=== PATIENT | female | born 1950 | race Caucasian/White ===

== ENCOUNTER → 2018-10-28 | Day surgery (SDC) | payer MEDICARE, MEDICAID ==
[~2018-10-28] VITALS: Ht 167.6 cm; Wt 93.8 kg
[~2018-10-28] MED LIST: ASPI-1393 PO; BACITRACIN 15GM TUBE TOP ONE; BACITRACIN 50,000 UNITS/VIAL ONE; BUPIVACAINE HCL/PF 0.5% (5MG/ML) 10ML ONE; CLOP75TA4 PO; FISH PO; GABA-531 PO; HEPARIN SODIUM 1,000 UNIT/1ML VIAL IV ONE; LIDOCAINE HCL 1% 20ML VIAL (Pyxis) INJ ONE; LOSA50TA41 PO; METF-416 PO; NIAC500T5 PO; PAPAVERINE HCL 30 MG/ML 2ML IV ONE; SODIUM CHLORIDE 0.9% 1,000 ML IV SCH; THROMBIN (BOVINE) 5000 UNITS/VIAL TOP ONE
[2018-10-28 11:16] LABS: BASOPHILS % 0.7 % (0.0-2.0); EOSINOPHILS % 5.1 % (0.0-5.0); HEMATOCRIT. 41.2 % (36.0-48.0); HEMOGLOBIN. 13.8 g/dL (12.0-16.0); LYMPHOCYTES % 21.2 % (20.0-50.0); MEAN CORPUSCULAR VOLUME 98.6 fL (81.0-99.0); MEAN PLATELET VOLUME 7.3 fl (7.4-10.4); MONOCYTES % 9.2 % (2.0-8.0); NEUTROPHILS % 63.8 % (40.0-76.0); PLATELET 224 x1000/uL (130-400); RED BLOOD CELL COUNT 4.18 mill/uL (4.2-5.4); RED CELL DISTRIBUTION WIDTH 13.7 % (11.6-14.6)
[2018-10-28 11:24] LABS: CHLORIDE 109 mEq/L (98-107)
[2018-10-28 11:25] LABS: PARTIAL THROMBOPLASTIN TIME 27.5 sec (23.4-31.0)
== END | disposition home or self-care (01) ==
LOC: OR 09:46
PROVIDERS: ATTEND Surgery Vascular Surgery
DX: I65.21 Occlusion and stenosis of right carotid artery (principal); E11.9 Type 2 diabetes mellitus without complications; I10 Essential (primary) hypertension; E78.5 Hyperlipidemia, unspecified; Z53.8 Procedure and treatment not carried out for other reasons; Z79.82 Long term (current) use of aspirin; Z79.899 Other long term (current) drug therapy; Z79.84 Long term (current) use of oral hypoglycemic drugs
CPT/HCPCS: 36415; 82962; J1644; J2440; J3490

== ENCOUNTER 2018-12-04 17:04 | Inpatient (IN) | payer MEDICARE, MEDICAID ==
[~2018-12-04] VITALS: Ht 167.6 cm; Wt 93.1 kg
[~2018-12-04 17:04] MED LIST changes: -BACITRACIN 15GM TUBE TOP ONE; -BACITRACIN 50,000 UNITS/VIAL ONE; -BUPIVACAINE HCL/PF 0.5% (5MG/ML) 10ML ONE; -HEPARIN SODIUM 1,000 UNIT/1ML VIAL IV ONE; -LIDOCAINE HCL 1% 20ML VIAL (Pyxis) INJ ONE; -PAPAVERINE HCL 30 MG/ML 2ML IV ONE; -SODIUM CHLORIDE 0.9% 1,000 ML IV SCH; -THROMBIN (BOVINE) 5000 UNITS/VIAL TOP ONE
[2018-12-04 17:49] LABS: BASOPHILS % 0.7 % (0.0-2.0); CHLORIDE 104 mEq/L (98-107); EOSINOPHILS % 4.6 % (0.0-5.0); HEMOGLOBIN. 14.3 g/dL (12.0-16.0); LYMPHOCYTES % 31.1 % (20.0-50.0); MEAN CORPUSCULAR HEMOGLOBIN 32.6 pg (28.0-32.0); MEAN CORPUSCULAR VOLUME 98.4 fL (81.0-99.0); MEAN PLATELET VOLUME 7.5 fl (7.4-10.4); MONOCYTES % 9.9 % (2.0-8.0); NEUTROPHILS % 53.7 % (40.0-76.0); PLATELET 225 x1000/uL (130-400); RED BLOOD CELL COUNT 4.37 mill/uL (4.2-5.4); RED CELL DISTRIBUTION WIDTH 13.2 % (11.6-14.6)
[2018-12-04] MEDS ORDERED: CLONIDINE 0.1MG TABLET PO PRN (20:30)
[2018-12-04] MEDS ORDERED: ONDANSETRON HCL 4MG/2ML INJ IV PRN (20:30)
[2018-12-04] MEDS ORDERED: IPRATROPIUM/ALBUTEROL 0.5-3(2.5)MG/3ML NEB NEB PRN (20:30)
[2018-12-04] MEDS ORDERED: LORAZEPAM 0.5MG TABLET PO PRN (20:30)
[2018-12-04] MEDS ORDERED: HYDROCODONE/ACETAMINOPHEN 5/325MG TABLET PO PRN (20:30)
[2018-12-04] MEDS ORDERED: DOCUSATE SODIUM 100MG CAPSULE PO PRN (20:30)
[2018-12-04] MEDS ORDERED: MAGNESIUM/ALUMINUM HYDROXIDE/SIMETHICONE 30ML UDC PO PRN (20:30)
[2018-12-04] MEDS: ACETAMINOPHEN 325MG TABLET PO PRN (21:16)
[2018-12-04 21:30] VITALS: BP 143/72
[2018-12-04] MEDS ORDERED: DEXTROSE 50% WATER 50ML SYRINGE IV PRN (21:45)
[2018-12-04 22:00] VITALS: BP 143/72
[2018-12-04] MEDS: ENOXAPARIN 30MG/0.3ML SYR SUBCUT SCH (22:22)
[2018-12-05 00:46] VITALS: BP 133/89
[2018-12-05] MEDS ORDERED: LORA-671 PO (00:50)
[2018-12-05] MEDS ORDERED: BASALGAR SQ (00:50)
[2018-12-05] MEDS ORDERED: EMPA10TA PO (00:50)
[2018-12-05] MEDS ORDERED: SITA100T11 PO (00:50)
[2018-12-05] MEDS ORDERED: METO-396 PO (00:50)
[2018-12-05 04:00] VITALS: BP 118/59
[2018-12-05] MEDS: BLOOD SUGAR DIAGNOSTIC STRIP TEST SCH ×4 (06:26→21:19)
[2018-12-05] MEDS: INSULIN LISPRO 100 UNITS/ML SUBCUT SCH ×4 (06:27→21:27)
[2018-12-05 07:14] LABS: BASOPHILS % 0.7 % (0.0-2.0); EOSINOPHILS % 6.3 % (0.0-5.0); HEMATOCRIT. 40.5 % (36.0-48.0); HEMOGLOBIN. 13.7 g/dL (12.0-16.0); LYMPHOCYTES % 33.7 % (20.0-50.0); MEAN CORPUSCULAR HEMOGLOBIN 33.3 pg (28.0-32.0); MEAN CORPUSCULAR VOLUME 98.4 fL (81.0-99.0); MEAN PLATELET VOLUME 7.7 fl (7.4-10.4); MONOCYTES % 10.4 % (2.0-8.0); NEUTROPHILS % 48.9 % (40.0-76.0); PLATELET 191 x1000/uL (130-400); RED BLOOD CELL COUNT 4.11 mill/uL (4.2-5.4); RED CELL DISTRIBUTION WIDTH 13.4 % (11.6-14.6)
[2018-12-05 08:10] LABS: LDL CHOLESTEROL 43 mg/dL (5-100)
[2018-12-05 08:12] LABS: CREATINE KINASE 48 IU/L (26-192); CREATINE KINASE MB FRACTION < 1.0 ng/mL (0.5-3.6); HDL CHOLESTEROL 31 mg/dL (40-59)
[2018-12-05 08:21] VITALS: BP 112/64
[2018-12-05] MEDS: ENOXAPARIN 30MG/0.3ML SYR SUBCUT SCH (08:38)
[2018-12-05] MEDS: ASPIRIN 81MG EC TABLET PO SCH (08:38)
[2018-12-05 12:11] VITALS: BP 118/55
[2018-12-05 13:08] LABS: PROTHROMBIN TIME 10.2 sec (9.6-11.0)
[2018-12-05] MEDS ORDERED: ENOXAPARIN 60MG/0.6ML SYR SUBCUT SCH (15:00)
[2018-12-05 16:00] VITALS: BP 137/62
[2018-12-05] MEDS: ENOXAPARIN 100MG/ML SYR SUBCUT SCH (17:09)
[2018-12-05] MEDS ORDERED: ATORVASTATIN CALCIUM 40MG TABLET PO SCH (21:00)
[2018-12-05] MEDS: INSULIN GLARGINE UD 100 UNITS/ML SYR SUBCUT SCH (21:27)
[2018-12-06] MEDS: ACETAMINOPHEN 325MG TABLET PO PRN ×2 (00:22→06:21)
[2018-12-06] MEDS: ENOXAPARIN 100MG/ML SYR SUBCUT SCH (04:56)
[2018-12-06] MEDS: INSULIN LISPRO 100 UNITS/ML SUBCUT SCH ×4 (06:20→21:16)
[2018-12-06] MEDS: BLOOD SUGAR DIAGNOSTIC STRIP TEST SCH ×4 (06:21→21:03)
[2018-12-06 08:00] VITALS: BP 127/49
[2018-12-06] MEDS ORDERED: NON FORMULARY PATIENT HOME MED XX SCH (08:15)
[2018-12-06] MEDS: LORATADINE 10MG TABLET PO SCH ×2 (08:53→17:52)
[2018-12-06] MEDS: ASPIRIN 81MG EC TABLET PO SCH (08:53)
[2018-12-06] MEDS: GABAPENTIN 300MG CAPSULE PO SCH (08:53)
[2018-12-06 11:40] VITALS: BP 132/66
[2018-12-06 16:00] VITALS: BP 139/51
[2018-12-06 20:00] VITALS: BP 131/64
[2018-12-06] MEDS: INSULIN GLARGINE UD 100 UNITS/ML SYR SUBCUT SCH (21:18)
[2018-12-07] VITALS (9 sets, daily range): BP systolic 119–146; BP diastolic 50–79
[2018-12-07] MEDS: BLOOD SUGAR DIAGNOSTIC STRIP TEST SCH ×4 (06:39→20:18)
[2018-12-07] MEDS: INSULIN LISPRO 100 UNITS/ML SUBCUT SCH ×4 (06:43→20:54)
[2018-12-07 07:10] LABS: BASOPHILS % 0.5 % (0.0-2.0); EOSINOPHILS % 6.2 % (0.0-5.0); HEMATOCRIT. 40.7 % (36.0-48.0); HEMOGLOBIN. 13.7 g/dL (12.0-16.0); LYMPHOCYTES % 30.7 % (20.0-50.0); MEAN CORPUSCULAR HEMOGLOBIN 32.8 pg (28.0-32.0); MEAN CORPUSCULAR VOLUME 97.6 fL (81.0-99.0); MEAN PLATELET VOLUME 7.6 fl (7.4-10.4); MONOCYTES % 11.3 % (2.0-8.0); NEUTROPHILS % 51.3 % (40.0-76.0); PLATELET 214 x1000/uL (130-400); RED BLOOD CELL COUNT 4.17 mill/uL (4.2-5.4); RED CELL DISTRIBUTION WIDTH 13.1 % (11.6-14.6)
[2018-12-07 07:21] LABS: CHLORIDE 108 mEq/L (98-107)
[2018-12-07] MEDS: ASPIRIN 81MG EC TABLET PO SCH (08:05)
[2018-12-07] MEDS: LORATADINE 10MG TABLET PO SCH ×2 (08:05→17:02)
[2018-12-07] MEDS: GABAPENTIN 300MG CAPSULE PO SCH (08:05)
[2018-12-07] MEDS ORDERED: HEPARIN SODIUM 1,000 UNIT/1ML VIAL IV ONE (09:37)
[2018-12-07] MEDS ORDERED: KCL 20MEQ/100ML PREMIX 100 ML IV NR ×2 (10:00→11:30)
[2018-12-07] MEDS ORDERED: SODIUM CHLORIDE 0.45% 1,000 ML IV SCH ×2 (12:30→16:00)
[2018-12-07] MEDS: CLOPIDOGREL 75MG TABLET PO SCH (12:40)
[2018-12-07] MEDS ORDERED: POTASSIUM CHLORIDE 20MEQ TABLET SR PO NR (12:45)
[2018-12-07] MEDS ORDERED: ASPIRIN/SOD BICARB/CITRIC ACID 324MG TAB EFF ONE (14:09)
[2018-12-07] MEDS ORDERED: IODIXANOL 320MG/ML 100 ML BOTTLE IV ONE (14:10)
[2018-12-07] MEDS ORDERED: LIDOCAINE HCL 1% 20ML VIAL (Pyxis) INJ ONE (14:10)
[2018-12-07] MEDS ORDERED: FENTANYL CITRATE/PF 50MCG/ML 2ML VIAL ONE (14:26)
[2018-12-07] MEDS ORDERED: MIDAZOLAM HCL 2 MG/2 ML VIAL ONE (14:26)
[2018-12-07] MEDS ORDERED: ATROPINE SULFATE 1MG/10ML SYR IV PRN (15:30)
[2018-12-07] MEDS ORDERED: ACETAMINOPHEN 325MG TABLET PO PRN (15:30)
[2018-12-07] MEDS ORDERED: ONDANSETRON HCL 4MG/2ML INJ IV PRN (15:30)
[2018-12-07] MEDS ORDERED: MORPHINE SULFATE 2 MG/ML CPJ (NOT FOR IM USE) IV PRN (15:30)
[2018-12-07] MEDS ORDERED: ENOXAPARIN 60MG/0.6ML SYR SUBCUT NR (21:00)
[2018-12-07] MEDS: INSULIN GLARGINE UD 100 UNITS/ML SYR SUBCUT SCH (22:06)
[2018-12-08] VITALS (16 sets, daily range): BP systolic 122–154; BP diastolic 37–84
[2018-12-08 05:30] LABS: BASOPHILS % 0.6 % (0.0-2.0); EOSINOPHILS % 6.5 % (0.0-5.0); HEMATOCRIT. 39.2 % (36.0-48.0); LYMPHOCYTES % 29.1 % (20.0-50.0); MEAN CORPUSCULAR HEMOGLOBIN 32.7 pg (28.0-32.0); MEAN CORPUSCULAR VOLUME 98.3 fL (81.0-99.0); MEAN PLATELET VOLUME 7.5 fl (7.4-10.4); MONOCYTES % 11.9 % (2.0-8.0); NEUTROPHILS % 51.9 % (40.0-76.0); PLATELET 202 x1000/uL (130-400); RED BLOOD CELL COUNT 3.99 mill/uL (4.2-5.4); RED CELL DISTRIBUTION WIDTH 13.5 % (11.6-14.6)
[2018-12-08 05:32] LABS: CHLORIDE 111 mEq/L (98-107)
[2018-12-08] MEDS: SODIUM CHLORIDE 0.45% 1,000 ML IV SCH ×2 (06:00→19:56)
[2018-12-08] MEDS: BLOOD SUGAR DIAGNOSTIC STRIP TEST SCH ×4 (06:00→20:05)
[2018-12-08] MEDS: INSULIN LISPRO 100 UNITS/ML SUBCUT SCH ×4 (07:19→20:12)
[2018-12-08] MEDS: CLOPIDOGREL 75MG TABLET PO SCH (08:44)
[2018-12-08] MEDS: GABAPENTIN 300MG CAPSULE PO SCH (08:44)
[2018-12-08] MEDS ORDERED: ASPIRIN 325MG TABLET PO SCH (09:00)
[2018-12-08] MEDS ORDERED: HEPARIN SODIUM 1,000 UNIT/1ML VIAL IV ONE ×2 (09:00→13:32)
[2018-12-08] MEDS: LORATADINE 10MG TABLET PO SCH ×2 (09:00→18:32)
[2018-12-08] MEDS ORDERED: LIDOCAINE HCL 1% 20ML VIAL (Pyxis) INJ ONE (13:32)
[2018-12-08] MEDS ORDERED: TICAGRELOR 90 MG TABLET PO ONE (14:12)
[2018-12-08] MEDS ORDERED: SODIUM CHLORIDE 0.45% 1,000 ML IV SCH (14:15)
[2018-12-08] MEDS ORDERED: CLOPIDOGREL 75MG TABLET ONE (14:15)
[2018-12-08] MEDS ORDERED: MORPHINE SULFATE 4 MG/ML CPJ (NOT FOR IM USE) IV PRN (14:15)
[2018-12-08] MEDS ORDERED: ATROPINE SULFATE 1MG/10ML SYR IV PRN (14:15)
[2018-12-08] MEDS ORDERED: ONDANSETRON HCL 4MG/2ML INJ IV PRN (14:15)
[2018-12-08] MEDS ORDERED: CLOPIDOGREL 75MG TABLET PO SCH (14:15)
[2018-12-08] MEDS ORDERED: ACETAMINOPHEN 325MG TABLET PO PRN (14:15)
[2018-12-08] MEDS ORDERED: MIDAZOLAM HCL 2 MG/2 ML VIAL ONE (14:21)
[2018-12-08] MEDS ORDERED: FENTANYL CITRATE/PF 50MCG/ML 2ML VIAL ONE (14:21)
[2018-12-08] MEDS ORDERED: CLOPIDOGREL 75MG TABLET PO NR (14:30)
[2018-12-08] MEDS: INSULIN GLARGINE UD 100 UNITS/ML SYR SUBCUT SCH (21:23)
[2018-12-09] VITALS (9 sets, daily range): BP systolic 115–160; BP diastolic 48–79
[2018-12-09] MEDS: BLOOD SUGAR DIAGNOSTIC STRIP TEST SCH ×2 (06:01→12:26)
[2018-12-09] MEDS: INSULIN LISPRO 100 UNITS/ML SUBCUT SCH ×2 (06:01→12:41)
[2018-12-09 07:35] LABS: BASOPHILS % 0.3 % (0.0-2.0); EOSINOPHILS % 2.7 % (0.0-5.0); HEMATOCRIT. 38.5 % (36.0-48.0); MEAN CORPUSCULAR HEMOGLOBIN 32.9 pg (28.0-32.0); MEAN CORPUSCULAR VOLUME 97.9 fL (81.0-99.0); MEAN PLATELET VOLUME 7.5 fl (7.4-10.4); MONOCYTES % 11.3 % (2.0-8.0); NEUTROPHILS % 65.7 % (40.0-76.0); PLATELET 204 x1000/uL (130-400); RED BLOOD CELL COUNT 3.94 mill/uL (4.2-5.4)
[2018-12-09 07:48] LABS: CHLORIDE 110 mEq/L (98-107)
[2018-12-09] MEDS ORDERED: ASPIRIN 325MG TABLET PO SCH (09:00)
[2018-12-09] MEDS ORDERED: CLOPIDOGREL 75MG TABLET PO SCH (09:00)
[2018-12-09] MEDS: GABAPENTIN 300MG CAPSULE PO SCH (09:40)
[2018-12-09] MEDS: LORATADINE 10MG TABLET PO SCH (09:40)
[2018-12-09] MEDS: SODIUM CHLORIDE 0.45% 1,000 ML IV SCH (09:40)
[2018-12-09] MEDS ORDERED: ASPI-1158 MT (12:30)
== END 2018-12-09 16:45 | disposition home health service (06) | DRG 247 ==
LOC: ER 17:04 → 8WST 19:28 → ENRESERV 19:53 → 3WST 12-07 15:35
PROVIDERS: ADMIT Internal Medicine; ATTEND Internal Medicine
PROC: 4A023N7 Measurement of Cardiac Sampling and Pressure, Left Heart, Percutaneous Approach (ICD-10-PCS; principal; 2018-12-07)
PROC: B2111ZZ Fluoroscopy of Multiple Coronary Arteries using Low Osmolar Contrast (ICD-10-PCS; 2018-12-07)
PROC: B2151ZZ Fluoroscopy of Left Heart using Low Osmolar Contrast (ICD-10-PCS; 2018-12-07)
PROC: 027034Z Dilation of Coronary Artery, One Artery with Drug-eluting Intraluminal Device, Percutaneous Approach (ICD-10-PCS; 2018-12-08)
PROC: B2101ZZ Fluoroscopy of Single Coronary Artery using Low Osmolar Contrast (ICD-10-PCS; 2018-12-08)
DX: I25.110 Atherosclerotic heart disease of native coronary artery with unstable angina pectoris (principal); I65.21 Occlusion and stenosis of right carotid artery; E11.42 Type 2 diabetes mellitus with diabetic polyneuropathy; E11.65 Type 2 diabetes mellitus with hyperglycemia; Z79.4 Long term (current) use of insulin; Z86.73 Personal history of transient ischemic attack (TIA), and cerebral infarction without residual deficits; I10 Essential (primary) hypertension; E78.5 Hyperlipidemia, unspecified; E87.6 Hypokalemia; E66.9 Obesity, unspecified; E78.00 Pure hypercholesterolemia, unspecified; E78.1 Pure hyperglyceridemia; F17.210 Nicotine dependence, cigarettes, uncomplicated; Z79.02 Long term (current) use of antithrombotics/antiplatelets; Z79.82 Long term (current) use of aspirin; Z68.33 Body mass index [BMI] 33.0-33.9, adult
CPT/HCPCS: 36415; 71045; 80048; 80061; 82550; 82553; 82962; 83036; 83735; 83880; 84484; 85347; 92928; 93005; 93454; 93458; 93970; 96372; 99285; C1760; C1769; C1874; C1887; C1893; J1644; J1650; J1815; J2250; J3010; J3480; J3490; Q9967; J8499

== ENCOUNTER 2019-01-06 09:16 | Inpatient (IN) | payer MEDICARE, MEDICAID ==
[~2019-01-06] VITALS: Ht 167.6 cm; Wt 93.4 kg
[2019-01-06] VITALS (37 sets, daily range): BP systolic 62–146; BP diastolic 25–81
[~2019-01-06 09:16] MED LIST changes: +ASPI-1158 MT; -ASPI-1393 PO; +BASALGAR SQ; +EMPA10TA PO; +LORA-671 PO; +METO-396 PO; +SITA100T11 PO
[2019-01-06 10:27] LABS: BASOPHILS % 0.8 % (0.0-2.0); EOSINOPHILS % 6.1 % (0.0-5.0); LYMPHOCYTES % 25.4 % (20.0-50.0); MEAN CORPUSCULAR HEMOGLOBIN 32.8 pg (28.0-32.0); MEAN CORPUSCULAR VOLUME 98.4 fL (81.0-99.0); MONOCYTES % 9.2 % (2.0-8.0); NEUTROPHILS % 58.5 % (40.0-76.0); PLATELET 227 x1000/uL (130-400); RED BLOOD CELL COUNT 3.96 mill/uL (4.2-5.4); RED CELL DISTRIBUTION WIDTH 13.7 % (11.6-14.6)
[2019-01-06 10:33] LABS: PARTIAL THROMBOPLASTIN TIME 27.5 sec (23.4-31.0)
[2019-01-06] MEDS ORDERED: LIDOCAINE HCL 1% 20ML VIAL (Pyxis) INJ ONE ×2 (11:01→13:15)
[2019-01-06] MEDS ORDERED: BUPIVACAINE HCL/PF 0.5% (5MG/ML) 10ML ONE (11:01)
[2019-01-06] MEDS ORDERED: HEPARIN SODIUM 1,000 UNIT/1ML VIAL IV ONE (11:02)
[2019-01-06] MEDS ORDERED: BACITRACIN 50,000 UNITS/VIAL ONE (11:02)
[2019-01-06] MEDS ORDERED: THROMBIN (BOVINE) 5000 UNITS/VIAL TOP ONE (11:05)
[2019-01-06] MEDS ORDERED: FENTANYL CITRATE/PF 50MCG/ML 2ML VIAL ONE (11:57)
[2019-01-06] MEDS ORDERED: ROCURONIUM BROMIDE 10MG/ML VIAL 5ML IV ONE (11:57)
[2019-01-06] MEDS ORDERED: PROPOFOL 200MG/20ML VIAL IV ONE (11:57)
[2019-01-06] MEDS ORDERED: MIDAZOLAM HCL 2 MG/2 ML VIAL ONE (11:57)
[2019-01-06] MEDS ORDERED: LIDOCAINE HCL/PF 1% 10 MG/ML 5ML VIAL ONE (11:57)
[2019-01-06] MEDS ORDERED: NITROGLYCERIN 50MG PREMIX 250 ML IV ONE (11:58)
[2019-01-06] MEDS ORDERED: LEVO25TA7 PO (12:14)
[2019-01-06] MEDS ORDERED: HEPARIN 1000 UNITS/ML 10ML ONE (12:57)
[2019-01-06] MEDS ORDERED: ONDANSETRON HCL 4MG/2ML INJ ONE (14:06)
[2019-01-06] MEDS ORDERED: SKIN ADHESIVE 0.7 GM EA TOP ONE (14:14)
[2019-01-06] MEDS ORDERED: ONDANSETRON HCL 4MG/2ML INJ IV PRN (14:30)
[2019-01-06] MEDS ORDERED: MORPHINE SULFATE 2 MG/ML CPJ (NOT FOR IM USE) IV PRN (14:30)
[2019-01-06] MEDS ORDERED: DIPHENHYDRAMINE 50MG/ML VIAL IV PRN (14:30)
[2019-01-06] MEDS ORDERED: IPRATROPIUM/ALBUTEROL 0.5-3(2.5)MG/3ML NEB HHN PRN (14:30)
[2019-01-06] MEDS ORDERED: CLONIDINE 0.1MG TABLET PO PRN (14:30)
[2019-01-06] MEDS ORDERED: ACETAMINOPHEN 325MG TABLET PO PRN ×2 (14:30→21:00)
[2019-01-06] MEDS ORDERED: DEXTROSE 50% WATER 50ML SYRINGE IV PRN (14:45)
[2019-01-06] MEDS: DEXT 5%/0.45% NACL KCL 20MEQ/L 1,000 ML IV SCH (17:33)
[2019-01-06 17:52] LABS: PHOSPHORUS 4.1 mg/dL (2.5-4.9)
[2019-01-06] MEDS: INSULIN LISPRO 100 UNITS/ML SUBCUT SCH ×2 (18:20→21:00)
[2019-01-06] MEDS: BLOOD SUGAR DIAGNOSTIC STRIP TEST SCH ×2 (18:25→21:07)
[2019-01-06] MEDS ORDERED: NOREPINEPHRINE 4 MG in DEXT 5% WATER 246 ML IV PRN (18:30)
[2019-01-06] MEDS ORDERED: SODIUM CHLORIDE 0.9% 250 ML IV NR (19:15)
[2019-01-06] MEDS: ENOXAPARIN 30MG/0.3ML SYR SUBCUT SCH (21:29)
[2019-01-06] MEDS ORDERED: SODIUM CHLORIDE 0.9% 250 ML IV ONE (22:00)
[2019-01-07] VITALS (47 sets, daily range): BP systolic 51–158; BP diastolic 26–73
[2019-01-07] MEDS: DEXT 5%/0.45% NACL KCL 20MEQ/L 1,000 ML IV SCH (04:20)
[2019-01-07 05:34] LABS: BASOPHILS % 0.3 % (0.0-2.0); EOSINOPHILS % 4.4 % (0.0-5.0); HEMATOCRIT. 35.5 % (36.0-48.0); HEMOGLOBIN. 11.8 g/dL (12.0-16.0); LYMPHOCYTES % 22.6 % (20.0-50.0); MEAN CORPUSCULAR HEMOGLOBIN 33.3 pg (28.0-32.0); MEAN CORPUSCULAR VOLUME 100.2 fL (81.0-99.0); MEAN PLATELET VOLUME 7.3 fl (7.4-10.4); MONOCYTES % 13.2 % (2.0-8.0); NEUTROPHILS % 59.5 % (40.0-76.0); PLATELET 199 x1000/uL (130-400); RED BLOOD CELL COUNT 3.54 mill/uL (4.2-5.4); RED CELL DISTRIBUTION WIDTH 13.8 % (11.6-14.6)
[2019-01-07 05:36] LABS: CHLORIDE 115 mEq/L (98-107)
[2019-01-07 05:45] LABS: LDL CHOLESTEROL 20 mg/dL (5-100)
[2019-01-07 05:47] LABS: HDL CHOLESTEROL 29 mg/dL (40-59)
[2019-01-07] MEDS: INSULIN LISPRO 100 UNITS/ML SUBCUT SCH ×2 (08:20→12:42)
[2019-01-07] MEDS: BLOOD SUGAR DIAGNOSTIC STRIP TEST SCH ×2 (08:42→12:42)
[2019-01-07] MEDS: ENOXAPARIN 30MG/0.3ML SYR SUBCUT SCH (08:57)
[2019-01-07] MEDS ORDERED: ENOXAPARIN 40MG/0.4ML SYR SUBCUT SCH (09:00)
[2019-01-07] MEDS ORDERED: HYDR-4001 MT (14:45)
== END 2019-01-07 16:10 | disposition home or self-care (01) | DRG 39 ==
LOC: OR 09:16 → CVICU 09:17
PROVIDERS: ADMIT Internal Medicine; ATTEND Internal Medicine
PROC: 03CH0ZZ Extirpation of Matter from Right Common Carotid Artery, Open Approach (ICD-10-PCS; principal; 2019-01-06)
PROC: 03UH0KZ Supplement Right Common Carotid Artery with Nonautologous Tissue Substitute, Open Approach (ICD-10-PCS; 2019-01-06)
DX: I65.21 Occlusion and stenosis of right carotid artery (principal); I25.10 Atherosclerotic heart disease of native coronary artery without angina pectoris; E11.9 Type 2 diabetes mellitus without complications; I10 Essential (primary) hypertension; E78.5 Hyperlipidemia, unspecified; Z95.5 Presence of coronary angioplasty implant and graft; Z86.73 Personal history of transient ischemic attack (TIA), and cerebral infarction without residual deficits
CPT/HCPCS: 36415; 80048; 80061; 82962; 83735; 84100; 84443; 84484; 88304; 88311; 93005; J1644; J1650; J2250; J2270; J2405; J2704; J3010; J3490